=== PATIENT | male | born 1935 | race Caucasian/White ===

== ENCOUNTER 2018-02-20 13:22 | Emergency (ER) | payer MEDICARE, BC, OTHER ==
[~2018-02-20] VITALS: Ht 160 cm; Wt 61.4 kg
[~2018-02-20 13:22] MED LIST: ACYC-202 PO; NAPR-56 PO
[2018-02-20] MEDS ORDERED: normal saline 1000ML IV soln IVB ONE (13:30)
[2018-02-20] MEDS ORDERED: morphine 4 MG/ML inj SYRINge IV ONE (13:35)
[2018-02-20] MEDS ORDERED: normal saline 1000ML IV soln IV ONE (13:35)
[2018-02-20] MEDS ORDERED: ondansetron/PF 4mg/2ml inj IV ONE (13:35)
[2018-02-20 13:53] LABS: BASOPHILS % (AUTO) 0.3 % (0-1); EOSINOPHILS # (AUTO) 0.2 X10'3 (0-0.9); EOSINOPHILS % (AUTO) 1.2 % (0-6); HEMATOCRIT 43.1 % (42.0-52.0); HEMOGLOBIN 14.4 g/dl (14.0-17.9); LYMPHOCYTES # (AUTO) 1.8 X10'3 (1.1-4.8); LYMPHOCYTES % (AUTO) 14.5 % (21-51); MEAN CORPUSCULAR HEMOGLOBIN 31.6 PG (27.0-31.0); MEAN CORPUSCULAR HGB CONC 33.4 % (33.0-36.5); MEAN CORPUSCULAR VOLUME 94.7 FL (78-98); MEAN PLATELET VOLUME 8.1 FL (7.4-10.4); MONOCYTES # (AUTO) 0.6 X10'3 (0-0.9); MONOCYTES % (AUTO) 5.1 % (2-12); NEUTROPHILS # (AUTO) 9.6 X10'3 (1.8-7.7); NEUTROPHILS % (AUTO) 78.9 % (42-75); PLATELET COUNT 294 X10'3 (140-440); RED BLOOD COUNT 4.55 X10'6 (4.70-6.10); RED CELL DISTRIBUTION WIDTH 13.9 % (11.5-14.5); WHITE BLOOD COUNT 12.2 X10'3 (4.5-11.0)
[2018-02-20 14:02] LABS: PROTHROMBIN TIME 10.6 SECONDS (9.0-12.0)
[2018-02-20 14:06] LABS: ALANINE AMINOTRANSFERASE 302 U/L (12-78); ALBUMIN 3.3 G/DL (3.4-5.0); ALKALINE PHOSPHATASE 214 IU/L (46-116); ANION GAP 9 (8-16); ASPARTATE AMINO TRANSFERASE 345 U/L (10-37); BILIRUBIN,TOTAL 2.4 MG/DL (0.1-1.0); BLOOD UREA NITROGEN 21 MG/DL (7-18); BUN/CREATININE RATIO 22.3 (5.4-32.0); CALCIUM 8.8 MG/DL (8.5-10.1); CHLORIDE 101 MMOL/L (99-107); CREATININE 0.94 MG/DL (0.60-1.10); GLUCOSE 163 MG/DL (70-104); POTASSIUM 3.5 MMOL/L (3.5-5.1); SODIUM 138 MMOL/L (135-145); TOTAL CARBON DIOXIDE 27.7 MMOL/L (24-32); TOTAL PROTEIN 6.7 G/DL (6.4-8.2); eGFR 77 ML/MIN
[2018-02-20 14:13] LABS: LIPASE 215 U/L (73-393)
[2018-02-20 16:38] LABS: CLARITY,URINE CLEAR (Clear); COLOR,URINE YELLOW (Yellow); GLUCOSE, URINE NEGATIVE (Neg); KETONES,URINE NEGATIVE (Neg); LEUKOCYTE ESTERASE ,URINE NEGATIVE (Neg); NITRITES, URINE NEGATIVE (Neg); OCCULT BLOOD,URINE NEGATIVE (Neg); PH,URINE 7.5 (4.8-8.0); PROTEIN,URINE NEGATIVE (Neg); UROBILINOGEN,URINE 0.2 E.U/dL (0.2-1.0)
[2018-02-20 16:40] LABS: UA COLLECTION TYPE URINAL
[2018-02-20 17:13] VITALS: BP 144/84
== END 2018-02-20 17:17 | disposition home or self-care (01) ==
LOC: ER 13:22
DX: R10.9 Unspecified abdominal pain (principal); Z88.0 Allergy status to penicillin; Z79.899 Other long term (current) drug therapy
CPT/HCPCS: 36415; 74176; 76700; 80053; 81003; 82948; 83605; 83690; 83880; 84145; 85025; 85610; 87040; 93005; 96374; 96375; 99285; J2270; J2405